=== PATIENT | female | born 1985 | race Caucasian/White ===

== ENCOUNTER → 2017-12-12 19:14 | Outpatient (CLI) | payer BC, SELFPAY ==
--- NOTE | 2017-12-12 19:21 | DI.RAD.S_ITS ---
PROCEDURE: XR KNEE RT 3V INDICATIONS: RIGHT KNEE PAIN TECHNIQUE: 3 views of the knee were acquired. COMPARISON: None. FINDINGS: Bones: No fractures or dislocations. Minimal flattening of the medial femoral articular surface. Soft tissues: No joint effusion. No suspicious soft tissue calcifications. IMPRESSION: No acute fractures or dislocations.Minimal flattening of the medial femoral articular surface. Dictated by: Brad Crooks M.D. on 12/13/2017 at 10:15 Approved by: Brad Crooks M.D. on 12/13/2017 at 10:17
== END ==
PROVIDERS: Visit Provider Physician Assistant
DX: M25.561 Pain in right knee (principal)
CPT/HCPCS: 73562